=== PATIENT | female | born 2005 | race Caucasian/White ===

== ENCOUNTER 2024-07-26 17:22 | Emergency (ER) | payer OTHER, SELFPAY ==
--- NOTE | 2024-07-26 18:14 | ED_ITS ---
HPI - General Adult General Chief complaint: Extremity Injury, Lower Stated complaint: R thigh injury playing soccer Related Data Allergies Allergy/AdvReac Type Severity Reaction Status Date / Time apple Allergy Severe Difficulty Verified 07/26/24 18:21 Swallowing cod liver oil Allergy Intermediate Unknown Verified 07/26/24 18:21 [facility] Social History Social History Advance Directives: No Advance Directives Information Provided: No Physical Exam ED Vital Signs: BMI result Body Mass Index 24.4 Course Course Course Narrative: This is a rapid medical exam performed by Gen Charlton NP: Additional HPI, ROS, PE not included below will be deferred to primary provider. Patient is a 18-year-old female presenting to the ED with complaint of right thigh pain. States she was playing soccer and kicked the ball, developed pain to the middle of the quad. Denies fall. Unable to fully visualize in triage due to privacy concerns. Discharge Plan Discharge Clinical Impression: Acute thigh pain Patient Disposition: Left W/O Completing Treatment Discharge Date/Time: 07/26/24 21:39
[2024-07-26 18:15] VITALS: BP 113/64; PULSE 64; RESP 16; TEMP 36.9; O2SAT 99; BMI 24.4
== END 2024-07-26 21:39 | disposition left against medical advice (07) ==
PROVIDERS: Emergency Provider Emergency Medicine
DX: M79.651 Pain in right thigh (principal)
CPT/HCPCS: 99281